=== PATIENT | male | born 1985 | race Two or more races ===

== ENCOUNTER 2021-08-02 02:28 | Emergency (ER) | payer MEDICAID ==
[~2021-08-02] VITALS: Ht 167.6 cm; Wt 72.6 kg
[2021-08-02 04:04] VITALS: BP 128/84
[2021-08-02 04:05] LABS: Basophils # (auto) 0 10 ^3/uL (0-0.2); Basophils % (auto) 0.2 % (0.0-2.0); Eosinophils # (auto) 0 10 ^3/uL (0-0.8); Eosinophils % (auto) 0.1 % (0.0-7.0); Hematocrit 39.5 % (41.0-53.0); Lymphocytes # (auto) 1.1 10 ^3/uL (0.4-5.4); Lymphocytes % (auto) 10.9 % (10.0-50.0); Mean Corpuscular Hemoglobin 29.8 pg (28.0-32.0); Mean Corpuscular Hgb Conc. 35.4 g/dL (32.0-36.0); Mean Corpuscular Volume 84.3 fL (80.0-100.0); Monocytes # (auto) 0.4 10 ^3/uL (0-1.3); Monocytes % (auto) 4.3 % (0.0-12.0); Neutrophils # (auto) 8.5 10 ^3/uL (1.6-8.6); Neutrophils % (auto) 84.5 % (37.0-80.0); Red Blood Cells 4.68 10^6/uL (4.5-5.90); White Blood Cell 10.1 10^3/uL (4.4-10.8)
[2021-08-02 04:31] LABS: Potassium 3.7 mmol/L (3.5-5.1)
[2021-08-02 04:40] LABS: Albumin 3.6 g/dL (3.4-5.0); BUN/Creatinine Ratio 7.1; Calcium 7.8 mg/dL (8.5-10.1); Magnesium 2.4 mg/dL (1.6-2.6)
[2021-08-02 04:42] LABS: Bilirubin, Total 0.5 mg/dL (0.2-1.0); Total Protein 7.3 g/dL (6.4-8.2)
[2021-08-02 05:31] LABS: Salicylate < 1.7 mg/dL (2.8-20.0)
[2021-08-02 05:45] LABS: Acetaminophen < 2.0 ug/mL (10-30)
== END 2021-08-02 06:45 | disposition left against medical advice (07) ==
LOC: ER 02:28 → EDBD 02:28 → ER 06:45
DX: H57.89 Other specified disorders of eye and adnexa (principal); H92.02 Otalgia, left ear; T65.891A Toxic effect of other specified substances, accidental (unintentional), initial encounter; Y08.89XA Assault by other specified means, initial encounter; Y93.89 Activity, other specified; Y92.89 Other specified places as the place of occurrence of the external cause; Y99.8 Other external cause status
CPT/HCPCS: 36415; 70450; 72125; 73130; 80053; 80320; 80329; 83735; 85025